=== PATIENT | male | born 1960 | race Caucasian/White ===

== ENCOUNTER 2017-01-27 10:08 | Day surgery (SDC) | payer OTHER ==
[2017-01-26 12:43] VITALS: BMI 29.7
[~2017-01-27 10:08] MED LIST: oxyCODONE HCL 10 MG SUSTAINED ACTING TABLET PO ONE
--- NOTE | 2017-01-27 11:12 | HP ---
History & Physical Update - History History: No Change - Physical Physical: No Change - Assessment Assessment: No Change - Plan Plan: No Change
[2017-01-27] MEDS ORDERED: PROPOFOL 20 ML ONE ×10 (11:23→14:18)
[2017-01-27] MEDS ORDERED: SUCCINYLCHOLINE CHLORIDE 200 MG/10 ML VIAL ONE (11:23)
[2017-01-27] MEDS ORDERED: ROCURONIUM BROMIDE 50 MG/5 ML VIAL ONE (11:24)
[2017-01-27] MEDS ORDERED: MIDAZOLAM HCL 2 MG/2 ML SINGLE DOSE VIAL ONE ×3 (11:24)
[2017-01-27] MEDS ORDERED: LIDOCAINE 1%/EPI 1:100000 (50 ML MULTI DOSE VIAL) INF ONE (12:15)
[2017-01-27] MEDS ORDERED: KETAMINE HCL 200 MG/20 ML VIAL ONE (12:18)
[2017-01-27] MEDS ORDERED: ONDANSETRON 4 MG/2 ML VIAL ONE ×2 (12:25→14:39)
[2017-01-27] MEDS ORDERED: DEXAMETHASONE SOD PHOSPHATE 4 MG/1 ML VIAL ONE (12:26)
[2017-01-27] MEDS ORDERED: ONDANSETRON 4 MG/2 ML VIAL IVPB PRN (15:14)
[2017-01-27] MEDS ORDERED: ONDANSETRON 4 MG/2 ML VIAL IVPUSH PRN (15:14)
[2017-01-27] MEDS ORDERED: oxyCODONE HCL 5 MG TABLET PO PRN ×2 (15:14)
[2017-01-27] MEDS ORDERED: LACTATED RINGERS SOLUTION 1,000 ML IV SCH ×2 (15:15)
[2017-01-27] MEDS: ACETAMINOPHEN 1000 MG/100 ML VIAL (NON FORMULARY) IVPB ONE ×2 (15:25→17:09)
[2017-01-27] MEDS ORDERED: diazePAM 2 MG TABLET PO ONE (16:00)
[2017-01-27] MEDS: diazePAM 5 MG TABLET PO ONE ×2 (16:31→17:09)
[2017-01-27] MEDS ORDERED: diazePAM 5 MG TABLET ONE (16:33)
[2017-01-27] MEDS: traMADol HCL 50 MG TABLET PO SCH ×2 (17:43→23:25)
--- NOTE | 2017-01-27 18:15 | OP ---
Operative Note - Note: Operative Date: 01/27/17 Pre-Operative Diagnosis: spinal stenosis Operation: anterior cervical fusion of C4-C6 Post-Operative Diagnosis: Same as Pre-op Surgeon: Joey Olivo Proofing Machine Operator: Nikki Cano Anesthesiologist/HEATING EQUIPMENT INSTALLER: Tanya Lanza Anesthesia: General Specimens Removed: disc of C4-5 and C5-6 Estimated Blood Loss (mls): 20 Fluid Volume Replaced (mls): 1,100 Operative Report Dictated: Yes
--- NOTE | 2017-01-27 18:17 | SURG ---
Surgery Ceramic Restorer Note Ceramic Restorer: Nikki Cano PA-C Date of Service: 01/27/17 Diagnosis: cervical stenosis Procedure: anterior cervical fusion of C4-5/C5-6 I was present for the entirety of the operative procedure. For further detail, please refer to operative report. Visit type - Case Type Case Type: Scheduled Admission - Emergency Emergency Visit: No - New patient This patient is new to me today: Yes Date on this admission: 01/27/17 - Critical Care Critical Care patient: No
[2017-01-27] MEDS: CEFAZOLIN 1 GM/D5W 50 ML IVPB SCH (20:56)
[2017-01-27] MEDS: CYCLOBENZAPRINE HCL 10 MG TABLET (FP) PO SCH (21:28)
[2017-01-27] MEDS ORDERED: ROSUVASTATIN CA 10 MG TABLET (FP) PO SCH (22:00)
[2017-01-27] MEDS: ACETAMINOPHEN 325 MG TABLET (FP) PO SCH (23:26)
[2017-01-28] MEDS: ACETAMINOPHEN 325 MG TABLET (FP) PO SCH (05:50)
[2017-01-28] MEDS: CEFAZOLIN 1 GM/D5W 50 ML IVPB SCH (05:57)
[2017-01-28] MEDS: traMADol HCL 50 MG TABLET PO SCH (06:05)
[2017-01-28 06:09] VITALS: BP 129/7; TEMP 97.7
--- NOTE | 2017-01-28 07:30 | DS ---
[id number] collar. States he's gotten oob and ambulated hallways as instructed. Pain managed well via PRN meds. Tolerating PO diet without difficulty. Denies n/v/f/c, CP, SOB, hoarsness or dysphagia. OBJECTIVE: Vital Signs Temperature 97.7 F 01/28/17 06:00 Pulse Rate 67 01/28/17 06:00 Respiratory Rate 17 01/28/17 06:00 Blood Pressure 129/7 01/28/17 06:00 O2 Sat by Pulse Oximetry (%) 99 01/28/17 06:07 PHYSICAL EXAM GENERAL: The patient is awake, alert, and fully oriented, in no acute distress. NECK: Trachea midline, PAMELA drain with minimal serosag output. Transverses incision intact. No hematoma. LUNGS: CTA b/l anteriorly HEART: RRR EXTREMITIES: 2+ pulses, warm, well-perfused, no edema. Correctional Supervisor Lieutenant strength 5/5 NEUROLOGICAL: CNII - XII grossly intact. Normal speech, gait not observed. PSYCH: Normal mood, normal affect. SKIN: Warm, dry, normal turgor, no rashes or lesions noted. LABS HOSPITAL COURSE: Date of Admission:01/27/17 Date of Discharge: 01/28/17 The patient was admitted to the Med-Surg Unit after an elective repair of their cervical stenosis. Now, s/p anterior cervical fusion of C4-C6. The day of surgery, the patient ambulated the hallways with assistance. Narcotic and non-narcotic pain management control was achieved with an oral and IV approach. POD #1, the surgical drain was removed fully intact and without incident. An xray was obtained and confirmed hardware placement at C4-C6, no fractures or dislocations. Lucie-operative IV ABX were administered. DVT prophylaxis was achieved with SCDs and early ambulation. The patient ambulated with Physical Therapy and no services were recommended upon discharge. Narcotic scripts and or muscle relaxants were checked with [facility] prior to escibe. The discharge instructions and an oral pain management plan were reviewed with the patient. All questions answered. Above plan discussed with Dr. Olivo and agreed. Minutes to complete discharge: 15 <Víctor Hui P - Last Filed: 01/28/17 07:26> Physical Exam: SUBJECTIVE: Patient seen and examined OBJECTIVE: Vital Signs Temperature 97.7 F 01/28/17 06:00 Pulse Rate 78 01/28/17 09:46 Respiratory Rate 17 01/28/17 08:41 Blood Pressure 129/7 01/28/17 06:00 O2 Sat by Pulse Oximetry (%) 99 01/28/17 09:46 PHYSICAL EXAM GENERAL: The patient is awake, alert, and fully oriented, in no acute distress. HEAD: Normal with no signs of trauma. EYES: PERRL, extraocular movements intact, sclera anicteric, conjunctiva clear. ENT: Ears normal, nares patent, oropharynx clear without exudates, moist mucous membranes. NECK: Trachea midline, full range of motion, supple. LUNGS: Breath sounds equal, clear to auscultation bilaterally, no wheezes, no crackles, no accessory muscle use. HEART: Regular rate and rhythm, S1, S2 without murmur, rub or gallop. ABDOMEN: Soft, nontender, nondistended, normoactive bowel sounds, no guarding, no rebound, no hepatosplenomegaly, no masses. EXTREMITIES: 2+ pulses, warm, well-perfused, no edema. NEUROLOGICAL: Cranial nerves II through XII grossly intact. Normal speech, gait not observed. PSYCH: Normal mood, normal affect. SKIN: Warm, dry, normal turgor, no rashes or lesions noted. LABS HOSPITAL COURSE: Date of Admission:01/27/17 Date of Discharge: 01/28/17 The patient was admitted to the Med-Surg Unit after an elective repair of their herniated discs C4-6. The day of surgery, the patient ambulated the hallways with assistance. Narcotic and non-narcotic pain management control was achieved with an oral and IV approach. POD #1, the surgical drain was removed fully intact and without incident. An xray was obtained and confirmed hardware placement at C4-6, no fractures or dislocations. Lucie-operative IV ABX were administered. DVT prophylaxis was achieved with SCDs and early ambulation. The patient ambulated with Physical Therapy and no services were recommended upon discharge. Narcotic scripts and or muscle relaxants were checked with [facility] prior to escibe. The discharge instructions and an oral pain management plan were reviewed with the patient. All questions answered. Above plan discussed with Dr. Olivo and agreed. <Joey Olivo - Last Filed: 01/28/17 17:01> Visit type - Case Type Case Type: Scheduled Admission - New patient This patient is new to me today: Yes Date on this admission: 01/28/17 <Víctor Hui - Last Filed: 01/28/17 07:26>
[2017-01-28] MEDS: CYCLOBENZAPRINE HCL 10 MG TABLET (FP) PO SCH (09:45)
[2017-01-28 09:47] VITALS: PULSE 78
[2017-01-28] MEDS ORDERED: HYDROCHLOROTHIAZIDE 12.5 MG CAPSULE (FP) PO SCH (10:00)
[2017-01-28] MEDS ORDERED: LISINOPRIL 10 MG TABLET (FP) PO SCH (10:00)
[2017-01-28] MEDS ORDERED: PATIENT'S OWN MEDICATION (NON-FORMULARY) (Lisinopril/Hydrochlorothiazide [Lisinopril-Hctz PO SCH (10:00)
--- NOTE | 2017-02-02 11:19 | PATH ---
Surgical Pathology Report Patient Name: SAMMY SHERIFF [facility]. Rec. #: [id number] /Age/Gender: 1960 (Age: 56) / M Account: [id number] Location: [facility] AMBUL[facility]ORY Taken: 01/27/2017 Received: 01/27/2017 Reported: 01/31/2017 Physicians: Joey Olivo M.D. Specimen(s) Received C4-6 DISC Clinical History Cervical spinal stenosis Final Diagnosis INTERVERTEBRAL DISC, C4-6, PARTIAL EXCISION: PORTIONS OF INTERVERTEBRAL DISC. Electronically Signed Clint Robles M.D. Gross Description Received in formalin labeled "C4-6 disc," is a 1.0 x 0.7 x 0.2 cm aggregate of appiah fragments of fibrocartilaginous tissue and possible bone. The specimen is entirely submitted in one cassette, following decalcification. /01/28/201701/28/2017
--- NOTE | 2017-02-15 09:56 | OP ---
DATE OF OPERATION: 01/27/2017 PREOPERATIVE DIAGNOSIS: Herniated disc, C4-C5, C5-C6. POSTOPERATIVE DIAGNOSIS: Herniated disc, C4-C5, C5-C6. PROCEDURE PERFORMED: 1. Anterior cervical discectomy and fusion, C4-C5. 2. Anterior cervical discectomy and fusion, C5-C6. 3. Placement of instrumentation C4 to C6. 4. Placement of prosthetic cages, C4-C5, C5-C6. SURGEON: Joey Olivo MD CERTIFIED RETINAL ANGIOGRAPHER: GATITO Wayne ESTIMATED BLOOD LOSS: 50 mL. INTRAVENOUS FLUIDS: Per Anesthesia. ANESTHESIA: General. COMPLICATIONS: None. DISPOSITION: Patient brought to the PACU in stable condition. INDICATIONS: The patient is a male who has been suffering from significant pain from his neck down to his left arm. He was also noted to have significant weakness in his arm. He had an MRI performed which noted that he had a herniated disc at C4-C5 and C5-C6. I had a long discussion with the patient regarding his weakness. Patient has had weakness for over 6 weeks. We discussed the etiology of his weakness. I explained to him that certainly the disc herniations could be causing problems. At this point, I recommended surgery to prevent any further loss of neurologic function. Risks, benefits, and alternatives of surgery were discussed, and the patient consented to surgery. OPERATIVE NOTE: Patient was brought into the operating room by Anesthesia. After appropriate patient identification was performed, general anesthesia was administered. Appropriate anesthetic lines were placed. SCDs were placed. Neuromonitoring leads were attached. Patient was placed supine onto the OR bed with his arms tucked in at the side. Needle was taped onto the C4-C5 level, and x-rays taken to confirm this was correct. The needle was removed, and 10 mL of lidocaine with epinephrine was injected into the neck at this time. His neck was prepped and draped in a sterile manner. At this point, a time-out was completed. A 2-inch incision was made on the left side of his neck. Dissection was carried down to the platysma. The platysma was cut in line with the skin incision. Next, the internally rotated sternocleidomastoid as well as strap muscles was developed. Next, an internally rotated carotid sheath as well as trachea esophagus was developed. Peanuts were used to elevate off the prevertebral fascia. A needle was placed into the C4-C5 disc. An x-ray was taken to confirm this was correct. The needle was removed, and longus colli muscles were elevated off, retractor blades were placed in. A Frost pin was placed into the body of C4 and the body of C6. A knife was used to incise the disc, and distraction was applied. At this point, the microscope was brought in. A Lee was used to elevate the disc off of the end-plate. Using a series of pituitaries, Kerrrison rongeurs, and curettes, a discectomy was completed. Complete decompression was performed. The end-plates were decorticated at this time. Cages filled with bone graft were placed in to C4-C5 and C5-C6. Screws were placed into the bodies of C4, C5, and C6. Frost pins were removed. AP and lateral x-rays confirmed the instrumentation to be in good position. Final tightening was performed. A PAMELA drain was placed. The platysma was closed with 2-0 Vicryl suture. Skin was closed with 3-0 Monocryl suture. Dermabond was applied. Steri-Strips were applied. Sterile dressings were applied. Patient was placed supine on the OR bed, x-rayed in the OR, and brought to the PACU in stable condition. Americo RUFFIN/[id number]
== END 2017-01-28 10:58 | disposition home or self-care (01) ==
LOC: FASU 10:08 → FM/S 16:59 → FASU 01-28 10:58
PROVIDERS: ATTEND Orthopaedic Surgery Orthopaedic Surgery of the Spine
PROC: 0RG10A0 Fusion of Cervical Vertebral Joint with Interbody Fusion Device, Anterior Approach, Anterior Column, Open Approach (ICD-10-PCS; 2017-01-27)
PROC: 0RG10K0 Fusion of Cervical Vertebral Joint with Nonautologous Tissue Substitute, Anterior Approach, Anterior Column, Open Approach (ICD-10-PCS; 2017-01-27)
PROC: 0RB30ZZ Excision of Cervical Vertebral Disc, Open Approach (ICD-10-PCS; principal; 2017-01-27 12:39)
DX: M50.221 Other cervical disc displacement at C4-C5 level (principal); M50.222 Other cervical disc displacement at C5-C6 level
CPT/HCPCS: 72050-TC; 76001-TC; 88304-TC; 94010; 94760; 97116-GP; 97162